=== PATIENT | male | born 1955 | race African-American/Black ===

== ENCOUNTER 2019-03-29 05:13 | Emergency (ER) | payer OTHER, MEDICAID ==
[~2019-03-29] VITALS: Ht 175.3 cm; Wt 68.2 kg
[2019-03-29 05:16] VITALS: BP 170/99
[2019-03-29] MEDS ORDERED: ACET-2119 PO (05:29)
[2019-03-29] MEDS ORDERED: PANT-47 PO (05:29)
== END 2019-03-29 05:46 | disposition home or self-care (01) ==
LOC: ER 05:15
DX: G89.29 Other chronic pain (principal); M54.9 Dorsalgia, unspecified; F17.210 Nicotine dependence, cigarettes, uncomplicated; Z76.0 Encounter for issue of repeat prescription; Z59.0 Homelessness; Z88.8 Allergy status to other drugs, medicaments and biological substances; Z79.899 Other long term (current) drug therapy
CPT/HCPCS: 99283